=== PATIENT | male | born 1965 | race Caucasian/White ===

== ENCOUNTER 2024-09-14 12:02 | Inpatient (IN) | payer OTHER, SELFPAY ==
[2024-09-14] VITALS (9 sets, daily range): BP systolic 108–138; BP diastolic 64–80; BMI 34.6; BMI 33.5
--- NOTE | 2024-09-14 08:01 | EDRN ---
Heriberto ESPAÑA in room w/pt
--- NOTE | 2024-09-14 08:06 | ED.GENMED ---
History of Present Illness
General
Chief Complaint: Abdominal Pain
Time Seen by Provider: 09/14/24 07:51
History of Present Illness
History of Present Illness:
58-year-old male with history of hypertension, hyperlipidemia, AK status post stent presents to the emergency department for evaluation of right upper quadrant abdominal pain radiating to the right mid back beginning yesterday gradually worsening.
Reports significant pain even with deep breathing. No vomiting or diarrhea. No ill contacts at home. May be febrile on arrival. No history of abdominal surgeries.
Past History
Past History
ED Past Medical History: Hypercholesterolemia and AK
ED Past Surgical History: Cardiac (Stents in the LAD)
Social History
Tobacco: Non-smoker
Alcohol: Occasional
Personal:
Living: with family
Review of Systems
Review of Systems
Allergies reviewed?: Yes
All Other Systems: ROS reviewed and negative except as documented in HPI and ROS
Phy Exam
Physical Exam
Physical Exam:
GEN: Well appearing, NAD, WDWN
Eyes: PERRLA, EOMs intact, no scleral icterus
HENT: NCAT, oral mucosa moist
Lungs: CTAB, no wheezes, rales, rhonchi, normal chest wall excursion
Cardiac: RRR, no M/R/G, no peripheral edema. Radial pulses 2+ bilat
Abdomen: Soft, marked right upper quadrant tenderness to palpation with positive Glaser sign
Neuro: AO x 3
MSK: No gross deformity or ecchymosis. No edema. No digital clubbing
Skin: No rashes, petechiae. Normal color, no pallor or jaundice.
Psych: Calm, cooperative, proper hygiene
Course
Orders/Labs/Results
Orders:
Orders
09/14/24 Breakfast
Clear Liquid
At Your Request: Full Participation
09/14/24 08:05
0.9% Sodium Chloride 1000 ml [Nss] 1,000 ml IV BOLUS
Morphine Sulfate 4 mg IV NOW STA
US Abdomen Complete/Upper Urgent
Comment:
Reason For Exam: RUQ pain
09/14/24 08:23
Complete Blood Count/With Diff Urgent
Comprehensive Metabolic Panel Urgent
Lactic Acid Urgent
Lipase Urgent
Prothrombin Time Urgent
Blood Culture Q30M
JOSH Source: Blood/Venous
Specimen Description:
09/14/24 09:18
Blood Culture Q30M
JOSH Source: Blood/Venous
Specimen Description:
09/14/24 09:30
Urinalysis Reflex To Culture Urgent
Date Specimen was Collected: 09/14/24
Time Specimen was Collected: 09:29
09/14/24 09:53
Piperacillin/Tazo 3.375 Gram [Zosyn] 3.375 gram in 50 ml IV NOW
09/14/24 10:21
CefoTEtan [Cefotan] 1,000 mg IV NOW STA
Sterile Water [Sterile Water For Injection] 10 ml IV NOW STA
09/14/24 11:16
Admit/Transfer Patient As Directed
Co-Sign Provider:
Level of Care: Inpatient admission
Assign to:: Medical/Surgical
Physician / Group: roshan hensley
Diagnosis: acute cholecystitis
Reason for Hospitalization: acute jose
Expected length of stay greater than two midnights?: Yes
ELOS- Estimated Length of Stay in days: 3
I certify the patient meets the requirements for IP care: Yes
PRN Pain Medication Management As Directed
May give lesser potent ordered pain med per pt: Yes
preference::
Protocol:: Medication orders for pain may be administered in a
manner that supports deferring to patient preference
when the pt is:
-Requesting an ordered lesser potent pain medication.
Least to most potent pain medications are defined as:
acetaminophen < NSAID < tramadol < opioids (morphine,
oxycodone, hydromorphone).
- Requesting a lesser dose of the same medication IF
ORDERED.
- Requesting a less intrusive route of administration
if both routes are prescribed by the provider (PO <
IV).
09/14/24 11:17
Code Status As Directed
Resuscitation Status: Full Code
09/14/24 11:23
EKG [Electrocardiogram (*1)] Stat
Reason for Study: Abdominal Pain
09/14/24 11:24
Accucheck [Bedside Glucose Monitoring] As Directed
Frequency: AC&HS
09/14/24 11:30
Insulin Aspart Corrective Low [Novolog Flexpen-Low Resistance] See Protocol SC AC
09/14/24 11:42
Morphine Sulfate 1 mg IV Q4HPRN PRN
Morphine Sulfate 2 mg IV Q4HPRN PRN
09/14/24 11:43
Ondansetron Injectable [Zofran] 4 mg IV Q6HPRN PRN
09/14/24 12:00
Dextrose 5%/0.45%Sodchl 1000ML [D5/0.45%NaCl] 1,000 ml IV 100 mls/hr
Dextrose 50%-Water [Dextrose 50% Syringe] 12.5 grams IV [id number] PRN
Flush (0.9% Sodium Chloride) [Flush (Nss)] See Dose Instructions IV PER PROTOCOL
Glucagon [GlucaGen] 1 mg IM PRN PRN
09/14/24 13:11
DX Deep Vein Thrombosis Video Routine
09/14/24 14:00
CefTRIAXone [Rocephin] 1,000 mg IV Q24H
09/14/24 18:00
Enoxaparin Sodium [Lovenox] 40 mg SC QPM
09/15/24 06:00
Complete Blood Count/No Diff IN AM
Comprehensive Metabolic Panel IN AM
09/16/24 06:00
Complete Blood Count/No Diff IN AM
Comprehensive Metabolic Panel IN AM
09/17/24 06:00
Complete Blood Count/No Diff IN AM
Comprehensive Metabolic Panel IN AM
09/18/24 06:00
Complete Blood Count/No Diff IN AM
Comprehensive Metabolic Panel IN AM
09/19/24 06:00
Complete Blood Count/No Diff IN AM
Comprehensive Metabolic Panel IN AM
09/20/24 06:00
Complete Blood Count/No Diff IN AM
Comprehensive Metabolic Panel IN AM
Abnormal Lab Results
09/14/24
08:23
Absolute Neuts (auto) 7.1 H 10^3/uL
(1.4-6.5)
Absolute Monos (auto) 1.1 H 10^3/uL
(0.1-0.6)
Lymphocytes % 19.0 L %
(20.5-51.1)
Monocytes % 10.7 H %
(1.7-9.3)
Glucose 141 H mg/dl
(70-99)
09/14/24 08:23
09/14/24 08:23
Vital Signs
Initial and Last Documented VS:
Initial Vital Signs
Temp Pulse Resp BP Pulse Ox
100.1 F 94 16 133/79 97
09/14/24 07:40 09/14/24 07:40 09/14/24 07:40 09/14/24 07:40 09/14/24 07:40
Last Documented Vital Signs
Temp Pulse Resp BP Pulse Ox
98.2 F 85 16 138/74 96
09/14/24 13:17 09/14/24 13:17 09/14/24 13:17 09/14/24 13:17 09/14/24 13:17
MDM/Problems Addressed
MDM/Problems Addressed:
58-year-old male presents for evaluation of acute upper abdominal pain found to have acute cholecystitis. Will admit to the hospitalist service for IV antibiotics and surgical consultation as the patient has significant coronary disease and is on
Plavix with the last dose taken this morning
*Critical Care Note
Total Time (30-74mins, 75-104mins- exclusive of procedures): Not Applicable
ED Attending Note
-
Portions of this chart may have been created with voice recognition software.� Occasional wrong word or��sound alike� substitutions may have occurred due to the inherent limitations of voice recognition software.
Discharge Plan
Departure
Patient Disposition: Admit
Date of Disposition: 09/14/24
Time of Disposition: 09:55
Presentation/result/management discussed w/ accepting MD/DO: Hospitalist
Discharge Problem:
Acute cholecystitis
Interventions
Interventions:
*Risk Screen - Suicide Last Done: 09/14/24 08:30
*General Assessment Last Done: 09/14/24 08:30
*Neglect/Abuse Screening Last Done: 09/14/24 08:30
ED- Fall Risk Assessment Last Done: 09/14/24 08:30
*ED COVID-19 Vaccine History Last Done: 09/14/24 08:30
*Nursing Disposition Last Done: 09/14/24 13:05
HD-Woipij-Xlavftnlhd Assessment Last Done: 09/14/24 08:30
Discharge Date and Time
Discharge Date/Time: 09/14/24 13:06
[2024-09-14] MEDS: NSS 1000 IV (08:24)
[2024-09-14 08:39] LABS: % Basophils 0.6 % (0-2); % Eosinophils 1.4 % (0-6); % Immature Granulocytes 0.3 % (0-0.5); % Monocytes 10.7 % (1.7-9.3); Absolute Basophils 0.1 10^3/uL (0-0.2); Absolute Eosinophils 0.2 10^3/uL (0-0.7); Absolute Monocytes 1.1 10^3/uL (0.1-0.6); Absolute Neutrophils 7.1 10^3/uL (1.4-6.5); Hematocrit 44.4 % (39.0-52.0); Hemoglobin 15.5 g/dL (13.0-18.0); Mean Corp Hgb Conc. 34.9 g/dL (33.0-37.0); Mean Corpuscular Hgb 30.9 pg (27.0-31.0); Mean Corpuscular Volume 88.4 fL (80.0-94.0); Mean Platelet Volume 10.1 fL (7.4-10.4); Nucleated Red Blood Cells % 0 % (-); Platelet Count 174 10^3/uL (130-400); Red Blood Cell Count 5.02 10^6/uL (4.70-6.10); Red Cell Dist. Width 12.5 % (11.5-14.5); White Blood Cell Count 10.4 10^3/uL (4.8-10.8)
[2024-09-14 08:44] LABS: INR 1.05
[2024-09-14 08:48] LABS: ALT (SGPT) 27 U/L (0-50); AST (SGOT) 32 U/L (17-59); Albumin 4.5 g/dl (3.5-5.0); Alkaline Phosphatase 72 U/L (38-126); Blood Urea Nitrogen 13 mg/dl (9-20); Calcium 9.3 mg/dl (8.4-10.2); Carbon Dioxide 25 mmol/L (22-30); Chloride 104 mmol/L (98-107); Estimated Creatinine Clearance 115 ml/min; Glucose 141 mg/dl (70-99); Lactic Acid 1.6 mmol/L (0.7-2.0); Lipase 62 U/L (23-300); Potassium 4.1 mmol/L (3.5-5.1); Sodium 138 mmol/L (135-145); Total Bilirubin 0.7 mg/dl (0.2-1.3); Total Protein 6.5 g/dl (6.3-8.2); eGFR > 60.00
--- NOTE | 2024-09-14 09:05 | EDRN ---
Heriberto Garza PA was in to see pt.
--- NOTE | 2024-09-14 09:20 | EDRN ---
Pt OOB to BR at this time.
[2024-09-14] MEDS: MORPHINE SULFATE 4 MG IV (09:34)
[2024-09-14 09:37] LABS: Urine Albumin Negative (Neg - Trace); Urine Bilirubin Negative (Negative); Urine Character Clear (Clear); Urine Color Yellow; Urine Glucose Negative (Negative); Urine Ketone Negative (Negative); Urine Leukocyte Negative (Negative); Urine Nitrite Negative (Negative); Urine Occult Blood Negative (Negative); Urine Urobilinogen Negative (Neg - 1+)
[2024-09-14] MEDS: STERILE WATER FOR INJECTION 10 ML IV ×2 (10:37→13:37)
[2024-09-14] MEDS: CEFOTAN 1000 MG IV (10:37)
--- NOTE | 2024-09-14 11:27 | HPS.HSE ---
Family Physician
-
Family Physician: Hugo Gay
Chief Complaint
-
right upper quadrant pain
History of Present Illness
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
not take anything to relieve the pain. States on Sunday night he went out for drinks, around that time started to notice ruq pain, did not make too much of it until Sunday when it became persistent and gradually worsening throughout the day. When
he woke up on Sunday monring noted abd pain and thought it was time to come to the hospital. He denied fever, chills, n/v and diarrhea.
In the ED. Hemodynamcically stable with a tmax of 100.1. Abd ultrasound showing positive sonographic Glaser's sign with mild gallbladder wall thickening which is suspicious for cholecystitis and left hepatic lobe cyst 2.5cm/ internal septation in
the superior aspect of the lef thepatic lob, thought to be a complex cyst measuring 3.9cm. Admit for IV antibiotics and surgical consultation as the patient has significant coronary disease and is on Plavix with the last dose taken this morning.
No Known Drug Allergies reported
PSHX: Should repair -left side
Family Hx: Mom from [place], Dad alive, Sister with [employer]ING [employer] SUPERVISOR conditions and vertigo on disabilty
SHx: Does not smoke, rarely drinks alochol and no drug use hx
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
Medical History
Past Medical History
Past Medical History: Reports CAD
Past Surgical History: Reports Orthopedic
Social History
Tobacco: Non-smoker
Family History
Family History: Other
Allergies / Home Medications
Allergies reflects when Allergies were last updated in [employer].
Home Medications with original date entered in [employer]
Allergy/Medication List:
Allergies
Allergy/AdvReac Type Severity Reaction Status Date / Time
No Known Allergies Allergy Unverified 06/06/15 18:10
Home Medications
clopidogrel 75 mg tablet (Plavix) 75 mg PO DAILY 09/14/24
metformin 500 mg tablet 500 mg PO BID 09/14/24
Review of Systems
-
A 12 point ROS was completed and negative except as noted: Yes
Physical Exam
Vital Signs
Vital Signs
Temp Pulse Resp BP Pulse Ox
100.1 F 81 16 129/80 95
09/14/24 07:40 09/14/24 11:00 09/14/24 11:00 09/14/24 11:00 09/14/24 11:00
Physical Exam
General: Well Developed, Well Nourished and No Apparent Distress
HEENT: NormoCephalic, Anicteric and Moist mucous membranes
Respiratory: Clear and Non Labored Respirations
Cardiac: S1/S2 and Regular Rhythm
GI: Soft, Non Distended, Normal Bowel Sounds and Tender (RUQ worse with deep palpation/Flank)
Musculoskeletal: Clubbing and No Clubbing
Skin: Warm and Dry
Neuro: Awake, Alert, Oriented and AO x 3
Psych: Calm
Laboratory Results
-
09/14/24 08:23
09/14/24 08:23
Laboratory Results
PT 14.0 Sec (11.4-14.6) 09/14/24 08:23
INR 1.05 09/14/24 08:23
Lactic Acid 1.6 mmol/L (0.7-2.0) 09/14/24 08:23
Total Bilirubin 0.7 mg/dl (0.2-1.3) 09/14/24 08:23
AST 32 U/L (17-59) 09/14/24 08:23
ALT 27 U/L (0-50) 09/14/24 08:23
Alkaline Phosphatase 72 U/L (38-126) 09/14/24 08:23
Lipase 62 U/L (23-300) 09/14/24 08:23
Impression/Plan
-
IMPRESSION:
Acute cholecystitis, without evidence of cholangitis
CAD
HTN
PreDMType2
Mood disorder
PLAN:
Surgery consult
CLD
IVF
IVF analgesics
Hold Plavix
Start LMWH, hold AM of surgery
Continue ARB and Statin
Hold Metformin
Accuchecks
BG 140-180
SSI
Continue Carbamazapine
[2024-09-14] MEDS: D5/0.45%NACL 1000 IV ×2 (13:37→21:51)
[2024-09-14] MEDS: ROCEPHIN 1000 MG IV (13:37)
[2024-09-14 13:45] LABS: Glucose - Point of Care 121 mg/dl (70-99)
--- NOTE | 2024-09-14 14:32 | PTCARENOTE ---
pt presents from ED via stretcher. pt is AOO*3, Vss, room air. pt is oriented to the room. c/o pain when moving. EKG done. pt is oriented to the room. call pepe within the reach. plan of care ongoing.
--- NOTE | 2024-09-14 15:55 | CON.GS ---
Consultation
-
Date/Time Consultation Requested: 09/14/24 0937
Requesting Provider: Greg
Performing Provider: Joycelyn Jones
Reason for Consultation: cholecystitis
Medical History
-
Chief Complaint: Abdominal pain
History of Present Illness:
Mr. Shin is a 58 yo male with a history of CAD with GA s/p PCI with stents and maintained on plavix (LD today) who developed RUQ pain 2 days ago after going out for drinks. It was not severe but persisted. He notes that last night he had dinner
around 7pm and went to bed a few hours later but was awakened from sleep with more severe pain to the RUQ radiating into his back. He notes sharp pain with movement or deep breathing. As his pain worsened and persisted through the night, he
presented to the ED early this morning for evaluation. He denies fever, chills, n/v or diarrhea. On exam, he is markedly tender to the RUQ.
Past Medical History
Past Medical History: CAD, HTN, Hypercholesterolemia, NIDDM (prediabetic, reports A1c of 6.3) and GA
Past Surgical History: Cardiac (2 stents: 17 years ago and 3 years ago) and Orthopedic (left shoulder)
Social History
Tobacco: Non-Smoker
Alcohol: Occasional
Personal:
Living: With Family
Family History
Family History: Reviewed & Not Pertinent
Allergies / Home Medications
Allergy/AdvReac Type Severity Reaction Status Date / Time
No Known Allergies Allergy Unverified 06/06/15 18:10
�Medication �Instructions �Recorded �Confirmed �Type
Curcumin Capsules 1 cap PO DAILY 09/14/24 09/14/24 History
Lactobac no.2-Bifidobac no.1-S. 1 cap PO DAILY 09/14/24 09/14/24 History
thermo 112.5 billion cell capsule
(Visbiome)
clopidogrel 75 mg tablet (Plavix) 75 mg PO DAILY 09/14/24 09/14/24 History
coenzyme Q10 100 mg capsule 100 mg PO DAILY 09/14/24 09/14/24 History
(CoQ-10)
ezetimibe 10 mg tablet (Zetia) 10 mg PO QPM 09/14/24 09/14/24 History
losartan 100 mg tablet 100 mg PO QPM 09/14/24 09/14/24 History
metformin 500 mg tablet 1,000 mg PO BID 09/14/24 09/14/24 History
omega-3 fatty acids 1,000 mg PO DAILY 09/14/24 09/14/24 History
omega-3 fatty acids 1,000 mg PO DAILY 09/14/24 09/14/24 History
oxcarbazepine 300 mg tablet 300 mg PO HS 09/14/24 09/14/24 History
rosuvastatin 40 mg tablet (Crestor) 40 mg PO QPM 09/14/24 09/14/24 History
therapeutic multivitamin 2 tab PO DAILY 09/14/24 09/14/24 History
Review of Systems
-
History Source: Patient and Family
All other systems: Negative unless noted
A 10 point review of systems was completed, and was negative except as per HPI.
Physical Exam
Vital Signs
Temp Pulse Resp BP Pulse Ox
98 F 80 16 135/76 97
09/14/24 15:03 09/14/24 15:03 09/14/24 15:03 09/14/24 15:03 09/14/24 15:10
09/13/24 09/14/24 09/15/24
06:59 06:59 06:59
Actual Weight 111.811 kg
Body Mass Index (BMI) 33.5
Lab Results
09/14/24 08:23
09/14/24 08:23
WBC 10.4 10^3/uL (4.8-10.8) 09/14/24 08:23
Hgb 15.5 g/dL (13.0-18.0) 09/14/24 08:23
Hct 44.4 % (39.0-52.0) 09/14/24 08:23
Plt Count 174 10^3/uL (130-400) 09/14/24 08:23
Abs Immat Gran (auto) 0.0 10^3/uL (0-0.05) 09/14/24 08:23
Neutrophils % 68.0 % (42.2-75.2) 09/14/24 08:23
Physical Exam
General: Well Developed and Well Nourished; Negative Comfortable
HEENT: Moist Mucous Membranes
Respiratory: Non Labored Respirations
GI: Soft, Non Distended, Tender (RUQ) and Obese
Skin: Warm and Dry
Neuro: Awake, Alert and AO x 3
Psych: Calm
Data Reviewed
-
Ultrasound: Image Personally Visualized and interpreted, Report Reviewed by me, Discussed with Physician, Discussed with Patient and Discussed with Family
Labs: Labs Reviewed by me, Discussed with Physician, Discussed with Patient and Discussed with Family
Assessment / Plan
-
58 yo male with h/o CAD on Plavix (LD today) presenting with RUQ pain which began about 2 days ago and was initially mild but worsened overnight with significant pain/tenderness. US imaging reviewed with cholelithiasis and evidence of acute
cholecystitis with +zhang's sign. On exam, he is markedly tender. No leukocytosis present. Afebrile with stable vital signs.
--Ok to continue on clears
--Continue abx, will add metronidazole to current cephalosporin agent
--Analgesics/antiemetics as needed
--Follow labs
--Hold plavix for surgical intervention
Would recommend laparoscopic cholecystectomy after plavix washout, timing TBD.
[2024-09-14] MEDS: FLAGYL 500 MG 100 IV (16:21)
[2024-09-14 16:41] LABS: Glucose - Point of Care 122 mg/dl (70-99)
[2024-09-14] MEDS: LOVENOX 40 MG SC (17:16)
[2024-09-14 21:30] LABS: Glucose - Point of Care 106 mg/dl (70-99)
[2024-09-14] MEDS: MELATONIN 3 MG PO (21:52)
[2024-09-15] MEDS: FLAGYL 500 MG 100 IV ×2 (04:59→15:57)
[2024-09-15] MEDS: TYLENOL 650 MG PO (05:42)
[2024-09-15 07:25] VITALS: BP 153/79
[2024-09-15 07:49] LABS: Glucose - Point of Care 130 mg/dl (70-99)
[2024-09-15 09:34] LABS: Hematocrit 44.5 % (39.0-52.0); Hemoglobin 14.9 g/dL (13.0-18.0); Mean Corp Hgb Conc. 33.5 g/dL (33.0-37.0); Mean Corpuscular Hgb 30.7 pg (27.0-31.0); Mean Corpuscular Volume 91.6 fL (80.0-94.0); Mean Platelet Volume 10.7 fL (7.4-10.4); Platelet Count 156 10^3/uL (130-400); Red Blood Cell Count 4.86 10^6/uL (4.70-6.10); Red Cell Dist. Width 12.3 % (11.5-14.5); White Blood Cell Count 6.7 10^3/uL (4.8-10.8)
[2024-09-15] MEDS: D5/0.45%NACL 1000 IV ×2 (09:40→21:25)
--- NOTE | 2024-09-15 10:08 | W.PN.GS2 ---
Today's Communication / Plan
-
Okay for falls, timing of surgery to be determined, but will plan for this admission.
Assessment / Plan
-
This is a 58-year-old male with a history of CAD and RI status post stents on Plavix (last dose 09/14/2024 AM) who presents with right upper quadrant pain and found to have acute cholecystitis on ultrasound imaging. He is clinically improved on
antibiotics so far.
Ideally we will wait till washout Plavix for 48 to 72 hours prior to OR.
Tentatively added onto the OR schedule for tomorrow but will follow clinically for now.
Okay for fulls, n.p.o. at midnight
Continue antibiotics
Hold Plavix.
Risks/Benefits/Alternatives, expected postoperative course and possible complications (bleeding, infection, injury to surrounding structures, acute/chronic pain) discussed at length. Patient wishes to proceed with surgery. All questions answered.
I spent 45 minutes in total for the care of this patient today including direct patient care and counseling, reviewing labs, imaging, coordination of care, as well as documentation.
Time Spent
Total Time Spent with Patient (in minutes): 25
Subjective Data
-
Date of Service: September 15, 2024
Interval Events:
No acute events overnight. Slept well. Pain Controlled. Denies Nausea/Vomiting, +bowel function. Tolerating diet.
Objective Data
-
Intake and Output
09/14/24 09/15/24 09/16/24
06:59 06:59 06:59
Intake Total 2580 / 2580 360 / 360
Balance 2580 / 2580 360 / 360
Intake:
Oral fluids 1230 / 1230 360 / 360
IV fluids (Total) 1100 / 1100
IV piggybacks 250 / 250
Other:
Number of approximated MODERATE 3 1
amounts of urine
Vital Signs
Temp Pulse Resp BP Pulse Ox
98.3 F 87 16 153/79 95
09/15/24 07:25 09/15/24 07:25 09/15/24 07:25 09/15/24 07:25 09/15/24 07:25
Lab Results
09/15/24 08:18
Calcium 9.3 mg/dl (8.4-10.2) 09/14/24 08:23
Total Bilirubin 0.7 mg/dl (0.2-1.3) 09/14/24 08:23
AST 32 U/L (17-59) 09/14/24 08:23
ALT 27 U/L (0-50) 09/14/24 08:23
Alkaline Phosphatase 72 U/L (38-126) 09/14/24 08:23
Total Protein 6.5 g/dl (6.3-8.2) 09/14/24 08:23
Albumin 4.5 g/dl (3.5-5.0) 09/14/24 08:23
Physical Exam
-
GENERAL/NEURO: Awake, Alert, no distress
CHEST: Unlabored breathing on RA
ABDOMEN: Soft, nondistended, minimal right upper quadrant tenderness.
[2024-09-15 10:13] LABS: ALT (SGPT) 25 U/L (0-50); AST (SGOT) 28 U/L (17-59); Albumin 4.1 g/dl (3.5-5.0); Alkaline Phosphatase 60 U/L (38-126); Blood Urea Nitrogen 9 mg/dl (9-20); Calcium 9.1 mg/dl (8.4-10.2); Carbon Dioxide 25 mmol/L (22-30); Chloride 105 mmol/L (98-107); Estimated Creatinine Clearance 113 ml/min; Glucose 140 mg/dl (70-99); Potassium 4.1 mmol/L (3.5-5.1); Sodium 138 mmol/L (135-145); Total Bilirubin 0.6 mg/dl (0.2-1.3); Total Protein 6.3 g/dl (6.3-8.2); eGFR > 60.00
[2024-09-15 11:42] LABS: Glucose - Point of Care 179 mg/dl (70-99)
[2024-09-15] MEDS: ROCEPHIN 1000 MG IV (13:03)
[2024-09-15] MEDS: STERILE WATER FOR INJECTION 10 ML IV (13:15)
--- NOTE | 2024-09-15 15:28 | W.PN.HOSP.TC ---
Today's Communication/Plan
-
IVF
NPO After Midnight
Plavix Washout
Hold AM dose of LMWH
Assessment / Plan
Assessment / Plan
IMPRESSION:
Acute cholecystitis, without evidence of cholangitis
CAD
HTN
PreDMType2
Mood disorder
PLAN:
Surgery follow
Per surgery Fulls, npo aftermidnight
IVF
IVF analgesics
IVAtb
Hold Plavix, allow for washout
Start LMWH, hold AM of surgery
Continue ARB and Statin
Hold Metformin
Accuchecks
BG 140-180
SSI
Continue Carbamazapine
Anticipated Discharge: 24 - 48 hours
Subjective/Interval History
-
Date of Service: September 15, 2024
seen and examined
no new complaints
no acute ovenright events
Objective Data
-
Labs:
Laboratory Results
09/15/24
08:18
WBC 6.7
Hgb 14.9
Hct 44.5
Plt Count 156
Sodium 138
Potassium 4.1
Chloride 105
Carbon Dioxide 25
BUN 9
Creatinine 0.9
Glucose 140 H
Calcium 9.1
Total Bilirubin 0.6
AST 28
ALT 25
Alkaline Phosphatase 60
Vital Signs:
Vital Signs
Temp Pulse Resp BP Pulse Ox
98.3 F 87 16 153/79 95
09/15/24 07:25 09/15/24 07:25 09/15/24 07:25 09/15/24 07:25 09/15/24 08:05
I&O
09/14/24 09/15/24 09/16/24
06:59 06:59 06:59
Intake Total 2580 / 2580 840 / 840
Balance 2579 840 / 840
Physical Exam
-
General: Well Developed, Well Nourished and No Apparent Distress
HEENT: Normocephalic, Atraumatic and Moist Mucous Membranes
Respiratory: Clear to Auscultation
Cardiac: Regular Rhythm and S1/S2
GI: Soft, Nondistended, Normal Bowel Sounds and Other (epigastric ruq pain)
Musculoskeletal: No Clubbing, No Cyanosis and No Edema
Skin: Warm
Neuro: Awake, Alert, Oriented and AO x 3
Psych: Calm
[2024-09-15 15:34] VITALS: BP 141/78
[2024-09-15 16:45] LABS: Glucose - Point of Care 107 mg/dl (70-99)
[2024-09-15] MEDS: LOVENOX 40 MG SC (17:08)
[2024-09-15 21:49] LABS: Glucose - Point of Care 101 mg/dl (70-99)
[2024-09-15 23:15] VITALS: BP 124/72
[2024-09-16] MEDS: FLAGYL 500 MG 100 IV ×2 (04:34→15:13)
[2024-09-16 07:02] VITALS: BP 127/79
[2024-09-16 08:02] LABS: Hematocrit 44.7 % (39.0-52.0); Hemoglobin 15.3 g/dL (13.0-18.0); Mean Corp Hgb Conc. 34.2 g/dL (33.0-37.0); Mean Corpuscular Hgb 30.9 pg (27.0-31.0); Mean Corpuscular Volume 90.3 fL (80.0-94.0); Mean Platelet Volume 10.2 fL (7.4-10.4); Platelet Count 168 10^3/uL (130-400); Red Blood Cell Count 4.95 10^6/uL (4.70-6.10); Red Cell Dist. Width 12.2 % (11.5-14.5); White Blood Cell Count 7.7 10^3/uL (4.8-10.8)
[2024-09-16 08:10] LABS: Glucose - Point of Care 126 mg/dl (70-99)
[2024-09-16 08:15] LABS: ALT (SGPT) 25 U/L (0-50); AST (SGOT) 29 U/L (17-59); Albumin 4.2 g/dl (3.5-5.0); Alkaline Phosphatase 68 U/L (38-126); Blood Urea Nitrogen 7 mg/dl (9-20); Calcium 9.4 mg/dl (8.4-10.2); Carbon Dioxide 28 mmol/L (22-30); Chloride 105 mmol/L (98-107); Estimated Creatinine Clearance 113 ml/min; Glucose 139 mg/dl (70-99); Potassium 4.3 mmol/L (3.5-5.1); Sodium 141 mmol/L (135-145); Total Bilirubin 0.5 mg/dl (0.2-1.3); Total Protein 6.3 g/dl (6.3-8.2); eGFR > 60.00
[2024-09-16 12:51] LABS: Glucose - Point of Care 143 mg/dl (70-99)
[2024-09-16] MEDS: TYLENOL 1000 MG PO (13:12)
[2024-09-16] MEDS: STERILE WATER FOR INJECTION 10 ML IV (13:13)
[2024-09-16] MEDS: ROCEPHIN 1000 MG IV (13:13)
[2024-09-16 15:20] VITALS: BP 137/76
--- NOTE | 2024-09-16 15:38 | W.PN.HOSP.TC ---
Today's Communication/Plan
-
Assessment / Plan
Assessment / Plan
IMPRESSION:
Acute cholecystitis, without evidence of cholangitis
CAD
HTN
PreDMType2
Mood disorder
PLAN:
Surgery follow
Per surgery Fulls, npo aftermidnight
IVF
IVF analgesics
IVAtb
Hold Plavix, allow for washout
Start LMWH, hold AM of surgery
Continue ARB and Statin
Hold Metformin
Accuchecks
BG 140-180
SSI
Continue Carbamazapine
Anticipated Discharge: > 48 hours
Subjective/Interval History
-
Date of Service: September 16, 2024
seen and examined
no change in pain level
still on liquid diet
Objective Data
-
Labs:
Laboratory Results
09/16/24
07:18
WBC 7.7
Hgb 15.3
Hct 44.7
Plt Count 168
Sodium 141
Potassium 4.3
Chloride 105
Carbon Dioxide 28
BUN 7 L
Creatinine 0.9
Glucose 139 H
Calcium 9.4
Total Bilirubin 0.5
AST 29
ALT 25
Alkaline Phosphatase 68
Vital Signs:
Vital Signs
Temp Pulse Resp BP Pulse Ox
98.2 F 84 20 127/79 96
09/16/24 07:02 09/16/24 07:02 09/16/24 07:02 09/16/24 07:02 09/16/24 07:02
I&O
09/15/24 09/16/24 09/17/24
06:59 06:59 06:59
Intake Total 2580 / 2580 1800 / 1800 580 / 580
Balance 2580 / 2580 1800 / 1800 580 / 580
Physical Exam
-
General: Well Developed and Well Nourished
HEENT: Normocephalic and Atraumatic
Respiratory: Clear to Auscultation
Cardiac: Regular Rhythm and S1/S2
GI: Soft, Nondistended and Tender
Musculoskeletal: No Clubbing and No Cyanosis
Skin: Warm
Neuro: Awake, Alert, Oriented and AO x 3
Psych: Calm
[2024-09-16 16:57] LABS: Glucose - Point of Care 93 mg/dl (70-99)
[2024-09-16] MEDS: LOVENOX 40 MG SC (17:01)
[2024-09-16 21:20] LABS: Glucose - Point of Care 114 mg/dl (70-99)
[2024-09-16 23:30] VITALS: BP 134/72
[2024-09-17] MEDS: FLAGYL 500 MG 100 IV ×2 (05:12→15:27)
[2024-09-17 07:47] VITALS: BP 122/75
[2024-09-17 08:08] LABS: Glucose - Point of Care 134 mg/dl (70-99)
[2024-09-17 09:01] LABS: Hematocrit 47.6 % (39.0-52.0); Hemoglobin 16.2 g/dL (13.0-18.0); Mean Corpuscular Hgb 30.6 pg (27.0-31.0); Mean Platelet Volume 10.3 fL (7.4-10.4); Platelet Count 182 10^3/uL (130-400); Red Blood Cell Count 5.29 10^6/uL (4.70-6.10); Red Cell Dist. Width 12.1 % (11.5-14.5); White Blood Cell Count 6.8 10^3/uL (4.8-10.8)
[2024-09-17 09:50] LABS: ALT (SGPT) 33 U/L (0-50); AST (SGOT) 42 U/L (17-59); Albumin 4.5 g/dl (3.5-5.0); Alkaline Phosphatase 74 U/L (38-126); Blood Urea Nitrogen 10 mg/dl (9-20); Calcium 9.5 mg/dl (8.4-10.2); Carbon Dioxide 27 mmol/L (22-30); Chloride 103 mmol/L (98-107); Estimated Creatinine Clearance 101 ml/min; Glucose 131 mg/dl (70-99); Potassium 4.5 mmol/L (3.5-5.1); Sodium 138 mmol/L (135-145); Total Bilirubin 0.7 mg/dl (0.2-1.3); Total Protein 6.7 g/dl (6.3-8.2); eGFR > 60.00
--- NOTE | 2024-09-17 11:12 | W.PN.HOSP.TC ---
Today's Communication/Plan
-
liquid diet
plavix washout
Assessment / Plan
Assessment / Plan
IMPRESSION:
Acute cholecystitis, without evidence of cholangitis
CAD
HTN
PreDMType2
Mood disorder
PLAN:
Surgery follow
Per surgery Fulls
IVF
IVF analgesics
IVAtb
Hold Plavix, allow for washout
Start LMWH, hold AM of surgery
Continue ARB and Statin
Hold Metformin
Accuchecks
BG 140-180
SSI
Continue Carbamazapine
Anticipated Discharge: > 48 hours
Subjective/Interval History
-
Date of Service: September 17, 2024
seen and exmained
no new comaplitns
no acute overnight events
Objective Data
-
Labs:
Laboratory Results
09/17/24
08:15
WBC 6.8
Hgb 16.2
Hct 47.6
Plt Count 182
Sodium 138
Potassium 4.5
Chloride 103
Carbon Dioxide 27
BUN 10
Creatinine 1.0
Glucose 131 H
Calcium 9.5
Total Bilirubin 0.7
AST 42
ALT 33
Alkaline Phosphatase 74
Vital Signs:
Vital Signs
Temp Pulse Resp BP Pulse Ox
97.9 F 76 20 122/75 96
09/17/24 07:47 09/17/24 07:47 09/17/24 07:47 09/17/24 07:47 09/17/24 10:34
I&O
09/16/24 09/17/24 09/18/24
06:59 06:59 06:59
Intake Total 1800 / 1800 1600 / 1600
Balance 1800 / 1800 1600 / 1600
Physical Exam
-
General: Well Developed and Well Nourished
HEENT: Normocephalic, Atraumatic and Moist Mucous Membranes
Respiratory: Clear to Auscultation
Cardiac: Regular Rhythm and S1/S2
GI: Soft, Nondistended, Normal Bowel Sounds and Tender (ruq)
Musculoskeletal: No Clubbing and No Cyanosis
Skin: Warm
Neuro: Awake, Alert, Oriented and AO x 3
Psych: Calm
--- NOTE | 2024-09-17 11:17 | W.PN.UPDATE ---
Update Note
Progress Note Update
Pt doing well, no complaints. Tentative plan for OR tomorrow for sarath garcia. [email or web address].
[2024-09-17 12:22] LABS: Glucose - Point of Care 85 mg/dl (70-99)
[2024-09-17] MEDS: STERILE WATER FOR INJECTION 10 ML IV (13:57)
[2024-09-17] MEDS: ROCEPHIN 1000 MG IV (13:57)
[2024-09-17 15:40] VITALS: BP 129/72
[2024-09-17 17:01] LABS: Glucose - Point of Care 110 mg/dl (70-99)
[2024-09-17] MEDS: LOVENOX 40 MG SC (17:38)
[2024-09-17 21:31] LABS: Glucose - Point of Care 96 mg/dl (70-99)
[2024-09-17 23:45] VITALS: BP 135/75
[2024-09-18] VITALS (10 sets, daily range): BP systolic 114–156; BP diastolic 70–85
[2024-09-18] MEDS: FLAGYL 500 MG 100 IV ×2 (04:40→15:36)
[2024-09-18 06:13] LABS: Glucose - Point of Care 119 mg/dl (70-99)
--- NOTE | 2024-09-18 08:18 | W.SUR.PREOP ---
Pre-Operative Surgical Note
-
I have examined this patient prior to the performance of the scheduled procedure.
The patient's condition is unchanged from the time of the current History and
Physical and the patient is able to undergo the scheduled procedure.
[2024-09-18 08:21] LABS: Hematocrit 47.6 % (39.0-52.0); Hemoglobin 16.2 g/dL (13.0-18.0); Mean Corpuscular Hgb 30.5 pg (27.0-31.0); Mean Corpuscular Volume 89.6 fL (80.0-94.0); Mean Platelet Volume 10.1 fL (7.4-10.4); Platelet Count 183 10^3/uL (130-400); Red Blood Cell Count 5.31 10^6/uL (4.70-6.10); White Blood Cell Count 6.4 10^3/uL (4.8-10.8)
[2024-09-18 09:03] LABS: ALT (SGPT) 41 U/L (0-50); AST (SGOT) 51 U/L (17-59); Albumin 4.4 g/dl (3.5-5.0); Alkaline Phosphatase 74 U/L (38-126); Blood Urea Nitrogen 10 mg/dl (9-20); Calcium 9.5 mg/dl (8.4-10.2); Carbon Dioxide 26 mmol/L (22-30); Chloride 103 mmol/L (98-107); Estimated Creatinine Clearance 101 ml/min; Glucose 116 mg/dl (70-99); Potassium 4.5 mmol/L (3.5-5.1); Sodium 139 mmol/L (135-145); Total Bilirubin 0.6 mg/dl (0.2-1.3); Total Protein 6.6 g/dl (6.3-8.2); eGFR > 60.00
--- NOTE | 2024-09-18 10:26 | W.IMMPOSTOP ---
Surgical Immed Post Op Note
-
Primary Surgeon: Cristhian Kiser MD
Assisting Surgeon: None
Pre-op Diagnosis: Acute cholecystitis
Post-op Diagnosis: Same
Procedure Performed: Laparoscopic cholecystectomy with intraoperative cholangiogram
Anesthesia Type: General
Specimen / Cultures: Gallbladder and contents
Estimated Blood Loss: 3 cc
Complications: None
Operative Findings: Distended and chronically inflamed gallbladder. Additional 5 mm ports placed to assist with retraction as the patient had a significant amount of intra-abdominal fat. Critical view of safety obtained prior to a cholangiogram
which demonstrated no distal filling defects and normal biliary anatomy. Issac's Hump noted and artery preserved.
POST OP PLAN:
Imaging: None
Labs: Routine AM
Diet: Advance to Regular as tolerated
Analgesia: Tylenol 650mg q6 Evelia, Dipti 5mg q6 PRN, Dilaudid 0.5mg q2h PRN
Neuro/vascular checks: q4h
AC/AP: Hold Therapeutic AC, Ok for DVT PPx
Activity: Ad Katja
Wound/Incisions/Drains: Routine
Abx: Continue antibiotics 24 hours, can stop on discharge.
Dispo: RNF, anticipate discharge later today versus tomorrow pending clinical course. He may resume his Plavix on 09/20/2024.
--- NOTE | 2024-09-18 10:30 | OR.RPT ---
Operative Report
Operative Report
Patient Name: Nikita Shin
: 1965
Date of Operation: 09/18/2024
Preoperative Diagnosis: Acute cholecystitis
Postoperative Diagnosis: Same
Procedure(s):
Laparoscopic Cholecystectomy with Cholangiogram
Surgeon(s):
Dr. Kiser
Pharmacist Intern(s):
TACO Samuels
Anesthesia: General
Estimated Blood Loss: 3 cc
Urine Output: None
Drains/Lines/Implants: None
Specimens:
1. Gallbladder and contents
HPI/Surgical Indications:
This is a 58-year-old male on Plavix who presented to our hospital this past weekend with postprandial right upper quadrant pain and found to have acute cholecystitis on ultrasound imaging. He was started on antibiotics with clinical improvement
and after allowing for sufficient time for his Plavix to washout, risks/Benefits/Alternatives were discussed at length, and the patient agreed to proceed with surgery.
Operative Findings: Distended and chronically inflamed gallbladder, with overlying omental adhesions. Additional 5 mm port placed to assist with retraction as the patient had a significant amount of intra-abdominal fat. Critical view of safety
obtained prior to a cholangiogram which demonstrated no distal filling defects and normal biliary anatomy. Issac's Hump noted and artery preserved.
Procedure Description:
The patient was brought to the Operating Room and placed in the supine position with one arm tucked. Following uneventful induction of general endotracheal anesthesia, an orogastric tube was placed. The abdomen was prepped and draped in the usual
sterile fashion. A timeout was performed confirming the procedure, consent, and that IV antibiotics were infused. SCDs were not placed. The abdomen was entered using an infraumbilical open Todd technique with a 12 mm balloon-tipped trocar.
Pneumoperitoneum to 15 mmHg pressure was obtained without difficulty and we confirmed that no injury had occurred during our entry. The patient was positioned in reverse Trendelenberg and rotated with the right side up slightly. Three (3) 5mm
trocars were then placed along the right subcostal margin. An additional 5 mm port was placed in the supraumbilical area to help with retraction of the significant amount of intra-abdominal fat noted soon after entry. A locking grasping forceps was
placed on the fundus of the gallbladder where it was then retracted cephalad and to the right. Using appropriate grasping instruments, the overlying omental adhesions to the gallbladder wall were lysed and the peritoneum overlying the triangle of
Calot was incised and extended superiorly on both the anterior and posterior gallbladder munguia. The infundibulum was dissected off the cystic plate. The cystic triangle was dissected until a critical view of safety was achieved. The cystic artery
was medialized, dissected and controlled with 2 proximal clips and 1 distal. This appeared to take off of a Issac's hump (accessory/replaced right hepatic artery). Care was taken to preserve the main portion of the artery though small area of
the adventitia had to be cauterized due to some bleeding. The cystic duct/gallbladder junction in turn was identified, dissected circumferentially and a clip was placed. There was an additional prominent artery coursing along the duct that was
ligated. A ductotomy was made and a cholangiocatheter on an Rangel clamp was inserted into the cystic duct. A C-arm was draped and brought into the field. An intra-operative cholangiogram was performed and was noted to have:
No filling defects in the biliary tree
No significant biliary dilation
Brisk flow of contrast into the duodenum
Normal biliary anatomy
The catheter was then removed and the cystic duct was controlled with a clip followed by a 0 PDS Endoloop, I used an additional Endoloop as the first appeared to not completely catch the back wall of the cystic duct.. After ensuring both the artery
and duct were divided, the gallbladder was freed from the liver using electrocautery. There was no spillage of bile or stones. The accessory/replaced right hepatic artery appeared to insert about chcf up the gallbladder wall back into the
liver. It was preserved along its entire length. The gallbladder bed was inspected and excellent hemostasis was obtained. The gallbladder was extracted through the 12 mm trocar site using an endocatch bag. The abdomen was again irrigated and
excellent hemostasis was assured. All remaining trocars were then removed and the pneumoperitoneum was evacuated. The 12 mm trocar site was closed using 0 PDS suture. All trocar sites were closed at the skin level using 4-0 Monocryl followed by
Dermabond. Overall, the patient tolerated the procedure well and was taken to the Recovery Room postoperatively in stable condition.
I was the attending physician and performed the procedure with assistance of the PA above. The assistance of TACO Samuels was required due to the complexity of the procedure. During the procedure Ethel assisted with retraction, resection, and
closure of the wound. I was present for all portions of the case, excluding skin closure.
Cristhian Kiser MD
[2024-09-18 10:55] LABS: Glucose - Point of Care 167 mg/dl (70-99)
[2024-09-18] MEDS: ZOFRAN 4 MG IV (11:17)
[2024-09-18 11:54] LABS: Glucose - Point of Care 179 mg/dl (70-99)
--- NOTE | 2024-09-18 12:06 | PTCARENOTE ---
pt back from OR s/p Lap jose. Pt is AAO*3, Drowsy. pt is on 4L o2. pt c/o 2/10 pain. Ice packs provided. pt is on regular diet. pt's family at the bedside updated. plan of care ongoing.
[2024-09-18] MEDS: STERILE WATER FOR INJECTION 10 ML IV (13:17)
[2024-09-18] MEDS: ROCEPHIN 1000 MG IV (13:17)
--- NOTE | 2024-09-18 14:24 | CM ---
Pt went to OR this morning for sarath garcia, returned to unit drowsy. CM spoke with his at bedside. They live in a 2 story home with 3 entry steps; 10-12 steps to the second floor; 3 full bathrooms and a powder room.
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
Plan: Discharge home with . No needs anticipated.
PCP: Hugo Gay
Pharm: [facility] in [place]
--- NOTE | 2024-09-18 16:26 | W.PN.HOSP.TC ---
Addendum entered and electronically signed by Julius Reynolds MD 09/18/24 18:15:
please change billingg code to discharge code <30mins as I spent 36minutes
Original Note:
Today's Communication/Plan
-
Assessment / Plan
Assessment / Plan
IMPRESSION:
Acute cholecystitis, without evidence of cholangitis
CAD
HTN
PreDMType2
Mood disorder
PLAN:
Surgery follow
S/p lap jose
IV analgesics
IVAtb
Resume plavix on 09/20/24
Continue ARB and Statin
Hold Metformin
Accuchecks
BG 140-180
SSI
Continue Carbamazapine
If tolerated diet and able to wean o2 then can dc home
Incentive nhung 10x's per hour
Anticipated Discharge: Within 24 hours
Subjective/Interval History
-
Date of Service: September 18, 2024
no new complaints
tolerated surgery well
awaiting food
Objective Data
-
Labs:
Laboratory Results
09/18/24
06:55
WBC 6.4
Hgb 16.2
Hct 47.6
Plt Count 183
Sodium 139
Potassium 4.5
Chloride 103
Carbon Dioxide 26
BUN 10
Creatinine 1.0
Glucose 116 H
Calcium 9.5
Total Bilirubin 0.6
AST 51
ALT 41
Alkaline Phosphatase 74
Vital Signs:
Vital Signs
Temp Pulse Resp BP Pulse Ox
98.1 F 90 18 141/76 95
09/18/24 13:54 09/18/24 13:54 09/18/24 13:54 09/18/24 13:54 09/18/24 13:54
I&O
09/17/24 09/18/24 09/19/24
06:59 06:59 06:59
Intake Total 1600 / 1600 1859 / 1859 150 / 150
Balance 1600 / 1600 1859 / 1859 150 / 150
Physical Exam
-
General: Well Developed and Well Nourished
HEENT: Normocephalic and Atraumatic
Respiratory: Clear to Auscultation
Cardiac: Regular Rhythm and S1/S2
GI: Normal Bowel Sounds
Skin: Warm
Neuro: Awake, Alert, Oriented and AO x 3
Psych: Calm
[2024-09-18 16:43] LABS: Glucose - Point of Care 146 mg/dl (70-99)
--- NOTE | 2024-09-18 17:37 | W.DCSUMMARY ---
Discharge Summary
Discharge Data
Date of Admission: 09/14/24
Date of Discharge: 09/18/24
-
Pending Results: No
Hospital Course
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
Presented with abdominal pain found to have acute cholecystitis. Started on IV antibiotics. Was taken to the OR with surgery after waiting 5 days for Plavix washout. Tolerated the lap jose well, discharged home with outpatient surgery follow-up
and PCP follow-up.
Resume Plavix on September 20, 2024.
Discharge Plan
-
Patient Disposition: Home (Routine Discharge)
Discharge Diagnosis/Procedures: Acute cholecystitis. Laparoscopic cholecystectomy
Condition: Good
Diet: No restrictions
Activity: No strenuous activity
Driving Restrictions: As prior to admission
Bathing Restrictions: OK to Shower
Activity Restrictions/Additional Instructions:
Presented with abdominal pain found to have acute cholecystitis. Started on IV antibiotics. Was taken to the OR with surgery after waiting 5 days for Plavix washout. Tolerated the lap jose well and discharged home with outpatient surgery
follow-up and PCP follow-up.
Resume Plavix on September 20, 2024.
Instructions following Laparoscopic Cholecystectomy
Please call [phone] if you have any questions or concerns after your surgery.
Wound Care:
Your incisions are covered with skin glue which will come off on its own in 5-10 days.
It is ok to shower the day after your surgery. Do not scrub the incisions, let soap and water wash over them and pat dry.
� Bruising around your incisions is normal.
� Using ice packs will help minimize this swelling.
� No swimming or soaking incisions for 1 week.
� Your stitches will dissolve and do not need to be removed.
Urinary retention:
If you are unable to urinate 6-8 hours after your surgery, please call [phone] to discuss further management.
Activity:
No heavy lifting more than 15 pounds for the next 3 weeks, then you may gradually lift heavier objects as tolerated by discomfort. Otherwise activity as tolerated by your comfort level.
Pain Management:
Use Tylenol, ibuprofen and ice packs to treat your pain.
� You may take 650 milligrams of Tylenol (Max 3 grams per day) every 6 hours, and 600 mg of ibuprofen also every 6 hours. (you can alternate them every 3 hours)
� You may use an ice pack to your incision as needed.
� If you still have pain not controlled by these measures, take your prescription pain medication as prescribed.
Medications:
You may resume your home medications.
You may restart your Plavix on 09/20/2024 at your usual dose and time.
Bowel Medications:
Prescription pain medication can make you constipated. If you take this medication, also take colace 100 mg twice daily (this is over the counter). If this is not sufficient, you may take Miralax (polyethylene glycol) to help move your bowels.
Diet:
After your procedure, there are no dietary restrictions. However, you may notice some loose stools with fatty meals for up to 4 weeks after surgery. If this is the case, please adjust to a low fat diet as needed.
Driving restrictions:
No driving if you are taking prescription pain medication or if you think your normal reaction time and attentiveness has been slowed by your surgery.
Things to Look out for:
Worsening Abdominal pain, fever, jaundice, redness or drainage from incision
Call Doctor for:
Please call if you notice worsening redness or drainage from incision(s) lasting longer than 5 days after your surgery, any foul-smelling drainage from the incision, pain not controlled by pain medications, persistent nausea and vomiting, or for any
fevers greater than 101.3 F. The number for questions/concerns is [phone]
Follow-up:
A follow-up appointment will be scheduled with your surgeon in 3-4 weeks. Please call prior to your appointment if you have any questions or concerns. [phone]
Referrals:
Cristhian Kiser MD [Active] - in two to three weeks
Hugo Gay MD [Family Provider] -
Additional Discharge Medication Instructions: Resume Plavix on 09/20/2024
Prescriptions:
New
hydrocodone-acetaminophen 5-300 mg tablet
1 tab PO Q8H PRN (Reason: Pain) Qty: 9 0RF
Continued
metformin 500 mg Tablet
1,000 mg PO BID
clopidogrel [Plavix] 75 mg Tablet
75 mg PO DAILY
losartan 100 mg Tablet
100 mg PO QPM
ezetimibe [Zetia] 10 mg Tablet
10 mg PO QPM
rosuvastatin [Crestor] 40 mg Tablet
40 mg PO QPM
Curcumin Capsules
1 cap PO DAILY
therapeutic multivitamin Tablet
2 tab PO DAILY
oxcarbazepine 300 mg Tablet
300 mg PO HS
coenzyme Q10 [CoQ-10] 100 mg Capsule
100 mg PO DAILY
omega-3 fatty acids Capsule
1,000 mg PO DAILY
omega-3 fatty acids Capsule
1,000 mg PO DAILY
Visbiome 112.5 billion cell Capsule
1 cap PO DAILY
Discharge Orders:
Discharge Patient (As Directed); Ordered 09/18/24
Ordered By: Julius Reynolds
Discharge Date and Time
Print Language: GREENLANDIC
== END 2024-09-18 19:17 | disposition home or self-care (01) | DRG 419 ==
LOC: 4 EAST ACU 12:02
PROVIDERS: Physician Assistant; Radiology Vascular & Interventional Radiology; Surgery; ADMITTING PHYSICIAN Hospitalist; EMERGENCY PHYSICIAN Emergency Medicine; FAMILY PHYSICIAN Internal Medicine; OTHER PHYSICIAN Surgery
PROC: 0FT44ZZ Resection of Gallbladder, Percutaneous Endoscopic Approach (ICD-10-PCS; 2024-09-18)
PROC: BF502Z0 Other Imaging of Bile Ducts using Fluorescing Agent, Intraoperative (ICD-10-PCS; 2024-09-18)
DX: K81.0 Acute cholecystitis (principal); I25.10 Atherosclerotic heart disease of native coronary artery without angina pectoris; I10 Essential (primary) hypertension; E78.00 Pure hypercholesterolemia, unspecified; F39 Unspecified mood [affective] disorder; R73.03 Prediabetes; I25.2 Old myocardial infarction; Z79.84 Long term (current) use of oral hypoglycemic drugs; Z79.02 Long term (current) use of antithrombotics/antiplatelets; Z95.5 Presence of coronary angioplasty implant and graft
CPT/HCPCS: 88304; 74300; 76000; 76700; 80053; 81003; 82962; 83605; 83690; 85025; 85027; 85610; 86850; 86900; 86901; 87040; 93005; 96361; 96374; 96375; 99285; A4300